=== PATIENT | female | born 1980 | race Hispanic/Latino ===

== ENCOUNTER 2021-04-30 10:31 | Emergency (ER) | payer OTHER ==
[~2021-04-30] VITALS: Ht 177.8 cm; Wt 102.6 kg
[2021-04-30] MEDS ORDERED: METF850T4 PO (10:45)
[2021-04-30] MEDS ORDERED: PRAZ2CAP PO (10:45)
[2021-04-30] MEDS ORDERED: DOXY-350 PO (10:45)
[2021-04-30] MEDS ORDERED: BUSP10TA PO ×2 (10:45)
[2021-04-30] MEDS ORDERED: SUMA25TA3 PO (10:45)
[2021-04-30] MEDS ORDERED: METOCLOPRAMIDE INJ 10MG/2ML VIAL (J2765 PER 1) IV ONE (11:55)
[2021-04-30] MEDS ORDERED: ACETAMINOPHEN 500 MG TAB PO ONE (11:55)
[2021-04-30] MEDS ORDERED: KETOROLAC 30 MG/ML 1ML VIAL IV ONE (11:55)
[2021-04-30] MEDS ORDERED: NS 1,000 ML IV ONE (11:55)
[2021-04-30] MEDS ORDERED: ONDA4TAB6 PO (13:49)
[2021-04-30 14:07] VITALS: BP 118/82
== END 2021-04-30 14:09 | disposition home or self-care (01) ==
LOC: M ED 10:31
DX: G43.909 Migraine, unspecified, not intractable, without status migrainosus (principal); E11.9 Type 2 diabetes mellitus without complications; I10 Essential (primary) hypertension; Q67.6 Pectus excavatum; Z79.899 Other long term (current) drug therapy; Z79.84 Long term (current) use of oral hypoglycemic drugs
CPT/HCPCS: 80047; 84702; 96374; 96375; 99284; J1885; J2765

== ENCOUNTER → 2021-11-11 | Outpatient (CLI) | payer OTHER ==
[~2021-11-11] MED LIST: BUSP10TA PO; DOXY-350 PO; METF850T4 PO; ONDA4TAB6 PO; PRAZ2CAP PO; SUMA25TA3 PO
== END ==
LOC: M WHC 07:48
PROVIDERS: ATTEND Physician Assistant
DX: N64.4 Mastodynia (principal); Z98.82 Breast implant status
CPT/HCPCS: 76642; 77066; G0279

== ENCOUNTER → 2021-11-16 | Outpatient (REF) | LOC: M PLAIMG 10:16 | PROVIDERS: ATTEND Internal Medicine | DX: M19.90 Unspecified osteoarthritis, unspecified site (principal) ==

== ENCOUNTER → 2022-03-14 | Outpatient (CLI) | payer OTHER ==
[~2022-03-14] MED LIST changes: +PROHANCE 279.3MG/ML 15ML VIAL As Ordered ONE; +PROHANCE 279.3MG/ML 5ML VIAL As Ordered ONE
[2022-03-14 15:20] LABS: BLOOD UREA NITROGEN 11 MG/DL (7-18); CREATININE FOR GFR 0.77 MG/DL (0.55-1.30); GLOMERULAR FILTRATION RATE > 60.0 (>58)
== END ==
LOC: M RAD 14:03
PROVIDERS: ATTEND Plastic Surgery Surgery of the Hand
DX: T85.44XA Capsular contracture of breast implant, initial encounter (principal); N64.4 Mastodynia; Y83.1 Surgical operation with implant of artificial internal device as the cause of abnormal reaction of the patient, or of later complication, without mention of misadventure at the time of the procedure
CPT/HCPCS: 36415; 82565; 84520; A9576; C8908

== ENCOUNTER 2022-05-06 20:59 | Emergency (ER) | payer OTHER ==
[~2022-05-06] VITALS: Ht 177.8 cm; Wt 110.2 kg
[~2022-05-06 20:59] MED LIST changes: -LOSA25TA13 PO; -OZEM2INJ SC
[2022-05-06] MEDS ORDERED: OZEM2INJ SC (21:06)
[2022-05-06] MEDS ORDERED: METF850T4 PO (21:06)
[2022-05-06 22:20] VITALS: BP 135/78
[2022-05-06] MEDS ORDERED: LOSA25TA13 PO (22:23)
[2022-05-06] MEDS ORDERED: LOSARTAN 25 MG TAB PO ONE (22:25)
[2022-05-06 22:40] VITALS: BP 135/78
== END 2022-05-06 22:49 | disposition home or self-care (01) ==
LOC: M ED 20:59
DX: I72.0 Aneurysm of carotid artery (principal); E11.9 Type 2 diabetes mellitus without complications; I10 Essential (primary) hypertension; G43.909 Migraine, unspecified, not intractable, without status migrainosus; Z79.84 Long term (current) use of oral hypoglycemic drugs; Z79.899 Other long term (current) drug therapy

== ENCOUNTER → 2022-05-06 | Outpatient (CLI) | payer OTHER ==
[~2022-05-06] MED LIST changes: -DOXY-350 PO; +DOXY-444 PO; +LOSA25TA13 PO; +OZEM2INJ SC; -PROHANCE 279.3MG/ML 15ML VIAL As Ordered ONE; -PROHANCE 279.3MG/ML 5ML VIAL As Ordered ONE
== END ==
LOC: M RAD 14:44
PROVIDERS: ATTEND Psychiatry & Neurology Neurology
DX: R42 Dizziness and giddiness (principal); R51.9 Headache, unspecified; I67.1 Cerebral aneurysm, nonruptured